=== PATIENT | female | born 1970 | race Caucasian/White ===

== ENCOUNTER 2018-09-21 05:56 | Day surgery (SDC) | payer OTHER ==
[2018-09-21] MEDS ORDERED: DIPHENHYDRAMINE 50 MG INJ (07:52)
[2018-09-21] MEDS ORDERED: MIDAZOLAM 1 MG/ML 2 ML INJ ×3 (08:10)
[2018-09-21] MEDS ORDERED: FENTAnyl 50 MCG/ML VIAL (08:10)
== END 2018-09-21 11:41 | disposition home or self-care (01) ==
LOC: GIL 05:56
DX: Z12.11 Encounter for screening for malignant neoplasm of colon (principal)
CPT/HCPCS: 45378